=== PATIENT | female | born 1990 | race Caucasian/White ===

== ENCOUNTER 2020-04-14 19:13 | Emergency (ER) | payer MEDICAID ==
[~2020-04-14] VITALS: Ht 154.9 cm; Wt 56.7 kg
[2020-04-14 19:48] VITALS: BP 110/71
--- NOTE | 2020-04-14 20:35 | NUR ---
ERMD IN TENT ASSESSING PT.
--- NOTE | 2020-04-14 20:55 | NUR ---
PT AMBULATED TO BED 2 WITH STEADY GAIT.
[2020-04-14 21:13] LABS: BASOPHILS % (AUTO) 0.1 % (0.0-2.0); HEMATOCRIT 40.6 % (36-48); HEMOGLOBIN 13.2 g/dL (12.0-16.0); LYMPHOCYTES # (AUTO) 2.6 K/uL (2.5-16.5); LYMPHOCYTES % (AUTO) 23.9 % (20.5-51.1); MEAN CORPUSCULAR HEMOGLOBIN 27 pg (27-31); MEAN CORPUSCULAR HGB CONC 33 g/dL (33-37); MEAN CORPUSCULAR VOLUME 83.2 fL (80-94); MONOCYTES # (AUTO) 0.6 K/uL (0.8-1.0); MONOCYTES % (AUTO) 5.9 % (1.7-9.3); NEUTROPHILS # (AUTO) 7.5 K/uL (1.8-7.7); NEUTROPHILS % (AUTO) 70.1 % (42.2-75.2); PLATELET COUNT (AUTO) 360 K/uL (140-450); RED BLOOD CELL COUNT(AUTO) 4.88 MIL/uL (4.20-5.40); RED CELL DISTRIBUTION WIDTH 14.4 % (11.6-13.7); WHITE BLOOD COUNT (AUTO) 10.7 K/uL (4.8-10.8)
--- NOTE | 2020-04-14 21:22 | NUR ---
PT STATES 8/10 R SIDED NECK PAIN STARTING TODAY. PT ALSO STATES SHE WOKE UP WITH L SIDE OF FACE SWOLLEN. O2: 100% RA, VSS. R/R EQUAL, AND UNLABORED. PLACED ON MONITOR. SIDE RAIL X1, BED IN LOW POSITION, WILL CONTINUE TO MONITOR. PT LATVIAN SPEAKING ONLY, NKDA DENIES PMH
[2020-04-14 21:34] LABS: ALBUMIN 4.3 g/dL (3.4-5.0); ANION GAP 14.4 (8-16); CARBON DIOXIDE 27.4 mmol/L (21-32); CREATININE 0.5 mg/dL (0.6-1.3); POTASSIUM 3.8 mmol/L (3.5-5.1); TOTAL BILIRUBIN 0.4 mg/dL (0.0-1.0)
[2020-04-14 22:04] LABS: APPEARANCE,URINE CLEAR (CLEAR); BILIRUBIN,URINE NEGATIVE (NEGATIVE); BLOOD, URINE 3+ (NEGATIVE); COLOR,URINE YELLOW (YELLOW); LEUKOCYTE ESTERASE ,URINE NEGATIVE (NEGATIVE); NITRITE, URINE NEGATIVE (NEGATIVE); UGLUCOSE NEGATIVE (NEGATIVE)
[2020-04-14 22:23] LABS: RBC,URINE 11-20 (MOD) /HPF (0-5)
[2020-04-14 22:24] LABS: WBC,URINE NONE SEEN /HPF (0-5)
--- NOTE | 2020-04-14 22:34 | NUR ---
PT RESTING QUIETLY IN BED, BRADYCARDIC RANGING BETWEEN 48-54 , R/R EQUAL, AND UNLABORED. 97% RA. BED IN LOW POSITION, SIDE RAIL X1, WILL CONTINUE TO MONITOR.
--- NOTE | 2020-04-14 23:41 | NUR ---
PT RESTING QUIETLY IN BED, REMAINS BRADYCARDIC ERMD AWARE. R/R EQUAL, AND UNLABORED 98% RA. BED IN LOW POSITION, SIDE RAIL X1, WILL CONTINUE TO MONITOR.
[2020-04-14 23:42] LABS: PROTHROMBIN TIME 9.8 secs (10.8-13.4)
[2020-04-15] MEDS ORDERED: ACETAMINOPHEN EXTRA STRENGTH 500 MG TAB PO ONE (00:35)
--- NOTE | 2020-04-15 00:41 | NUR ---
PT APPEARS TO BE SLEEPING IN BED, PT REMAINS BRADYCARDIC, R/R EQUAL, AND UNLABORED. 98% RA. BED IN LOW POSITION, SIDE RAIL X1, WILL CONTINUE TO MONITOR.
[2020-04-15] MEDS ORDERED: ASPIRIN 325 MG TAB PO ONE (01:25)
--- NOTE | 2020-04-15 01:32 | NUR ---
PT APPEARS TO BE SLEEPING IN BED, PT REMAINS BRADYCARDIC, R/R EQUAL, AND UNLABORED. 99% RA. BED IN LOW POSITION, SIDE RAIL X1, WILL CONTINUE TO MONITOR.
--- NOTE | 2020-04-15 02:42 | NUR ---
PT APPEARS TO BE SLEEPING IN BED, PT REMAINS BRADYCARDIC, R/R EQUAL, AND UNLABORED. 97% RA. BED IN LOW POSITION, SIDE RAIL X1, WILL CONTINUE TO MONITOR.
--- NOTE | 2020-04-15 02:57 | NUR ---
REPORT GIVEN TO ALBINO BENÍTEZ AT [facility]. ALL QUESTIONS ANSWERED, WILL CALL BACK WITH UPDATED ETA FOR TRANSPORT.
--- NOTE | 2020-04-15 03:22 | NUR ---
[place] AND SPO[place] TO ALBINO BEN[place]Z [place] [facility] [place] NOTIFIED [place] PT EARLIEST ETA WILL BE 6 AM.
--- NOTE | 2020-04-15 03:23 | NUR ---
PT RESTING QUIETLY IN BED, REMAINS BRADYCARDIC ERMD AWARE. R/R EQUAL, AND UNLABORED 97% RA. BED IN LOW POSITION, SIDE RAIL X1, WILL CONTINUE TO MONITOR.
--- NOTE | 2020-04-15 04:30 | NUR ---
PT APPEARS TO BE SLEEPING, AROUSABLE TO NAME. STATES " I'M OK". PT STILL REMAINS BRADYCARDIC, ERMD AWARE. R/R EQUAL, AND UNLABORED O2: 99% ON RA. BED IN LOW POSITION, SIDE RAIL X1 WILL CONTINUE TO MONITOR.
--- NOTE | 2020-04-15 06:11 | NUR ---
[facility] TRANSPORT AT BEDSIDE
--- NOTE | 2020-04-15 06:29 | NUR ---
PT TAKEN BY [facility] TRANSPORT TO [facility]
[2020-04-15 06:31] VITALS: BP 97/55
--- NOTE | 2020-04-15 06:31 | NUR ---
Patient to be transferred to [facility]. Is being transferred due to NEEDING HIGHER LEVEL OF CARE. Receiving facility has accepting physician and available space. ER physician has signed transfer form. Patient or responsible libertarian has agreed to transfer and signed form. Patient belongings inventoried and will be sent with patient. Copy of nursing notes, lab reports, EKG, Physicians Orders and X-rays to be sent with patient. Report called to ALBINO BENÍTEZ at receiving facility. [facility] ambulance service has been called for transfer. ETA is 0730.
--- NOTE | 2020-04-15 06:32 | NUR ---
Note undone in EDM - 04/15/20 at 0633 by PAUL Patient to be transferred to [facility]. Is being transferred due to NEEDING HIGHER LEVEL OF CARE. Receiving facility has accepting physician and available space. ER physician has signed transfer form. Patient or responsible democrat has agreed to transfer and signed form. Patient belongings inventoried and will be sent with patient. Copy of nursing notes, lab reports, EKG, Physicians Orders and X-rays to be sent with patient. Report called to ALBINO BENÍTEZ at receiving facility. [facility] ambulance service has been called for transfer. ETA is 0700.
== END 2020-04-15 06:29 | disposition short-term general hospital (02) ==
LOC: EEVIPCON 19:13 → MED 19:13
DX: R29.810 Facial weakness (principal); R29.818 Other symptoms and signs involving the nervous system
CPT/HCPCS: 36415; 70450; 70496; 70498; 71045; 80053; 81001; 81025; 84484; 85025; 85610; 85730; 86886; 86900; 86901; 93005; 99285; Q0092; Q9967